=== PATIENT | female | born 1940 | race Caucasian/White ===

== ENCOUNTER 2018-12-21 19:04 | Observation (INO) ==
[2018-12-21] MEDS ORDERED: hydrALAZINE HCl Inj 20 MG/ML Vial IV.PUSH ONE (21:29)
--- NOTE | 2018-12-21 22:19 | CT ---
EXAM DATE: 12/21/2018 10:10 PM EST AGE/SEX: 78 years / Female INDICATIONS: Cephalgia. CLINICAL DATA: This is the patient's initial encounter. Patient reports that signs and symptoms have been present for 1 day and indicates a pain score of 6/10. MEDICAL/SURGICAL HISTORY: Dementia. Peripheral artery disease. Hypercholesterolemia. Hypertensio n. Femoral artery stenosis. None. RADIATION DOSE: 58.25 CTDI (mGy) COMPARISON: [facility], CT HEAD W/O CONTRAST, 06/09/2018. . TECHNIQUE: CT of the head without contrast. Using automated exposure control and adjustment of the mA and/or kV according to patient size, radiation dose was kept as low as reasonably achievable to ob tain optimal diagnostic quality images. DICOM format image data is available electronically for revi ew and comparison. FINDINGS: Cerebrum: Atrophy. The ventricles are normal for age. No evidence of midline shift, mass lesion, he morrhage or acute infarction. No extraaxial fluid collections are seen. Posterior Fossa: The cerebellum and brainstem are intact. The 4th ventricle is midline. The cerebe llopontine angle is unremarkable. Extracranial: The visualized portion of the orbits is intact. Increase in density of the mastoid air cells bilaterally is a new finding. No bony destruction. Skull: The calvaria is intact. No evidence of skull fracture. CONCLUSION: 1. Increase in density of the mastoid air cells bilaterally. This is a new finding from the prior ex am. Clinical evaluation for any signs of acute mastoiditis suggested. 2. No acute intracranial abnormality. . . Electronically signed by: Joe Linares MD Board Certified Radiologist 12/21/2018 10:17 PM EST
--- NOTE | 2018-12-21 22:21 | ED ---
HPI General Chief complaint: Hypertension Stated complaint: HTN x 1800 Time Seen by Provider: 12/21/18 21:15 Source: patient and family Limitations: no limitations History of Present Illness HPI narrative: Patient is a 78-year-old female, past medical history significant for COPD on oxygen at home, hypertension on lisinopril at home, elevated intraocular pressure though per family "not yet glaucoma" on drops several times a day, who presents with complaint of elevated blood pressure and L eye blurry vision. Family states that her blood pressure has not been well controlled since June when she was taken off previous medications and put on lisinopril only for her blood pressure. This evening she started to complain of blurry vision at 6 PM and they noted that her blood pressure was in the 200s. This is higher than it was earlier in the day it is abnormal for her. She had 35 mg of lisinopril today without much change and family states that has continued to go up. She has had headache as well. She does not have vision out of her right eye at baseline. No chest pain or shortness of breath no abdominal pain, nausea, vomiting. No numbness nor weakness. Onset (ago): hour(s) Severity: moderate Quality: aching Pain Consistency: constant Relieving factors: none Exacerbating factors: none Treatments prior to arrival: Reports other Related Data Home Medications Medication Instructions Recorded Confirmed apixaban 2.5 mg PO BID 08/04/18 08/04/18 aspirin 81 mg PO DAILY 08/04/18 12/21/18 bimatoprost [Lumigan] 1 drp OPHTHALMIC (EYE) QPM 08/04/18 12/21/18 brimonidine 1 drp OPHTHALMIC (EYE) TID 08/04/18 12/21/18 coenzyme Q10 [Co Q-10] 100 mg PO DAILY 08/04/18 12/21/18 dorzolamide 1 drp OPHTHALMIC (EYE) TID 08/04/18 12/21/18 escitalopram oxalate 20 mg PO DAILY 08/04/18 12/21/18 fexofenadine [Yanelis Allergy] 180 mg PO DAILY 08/04/18 12/21/18 fluticasone [Flonase Allergy 1 spray INTRANASAL DAILY 08/04/18 12/21/18 Relief] fluticasone furoate [Arnuity 1 inh INHALATION DAILY 08/04/18 12/21/18 Ellipta] ipratropium-albuterol 3 ml INHALATION Q6-8H PRN 08/04/18 12/21/18 isosorbide mononitrate 30 mg PO DAILY 08/04/18 12/21/18 levothyroxine 100 mcg PO DAILY 08/04/18 12/21/18 lisinopril 30 mg PO BID 08/04/18 12/21/18 omeprazole 20 mg PO DAILY 08/04/18 12/21/18 potassium chloride 30 meq PO QPM 08/04/18 12/21/18 propafenone 150 mg PO TID 08/04/18 12/21/18 rosuvastatin 10 mg PO DAILY 08/04/18 12/21/18 vit C,P-Mt-spgpp-lutein-zeaxan 1 tab PO QAM AND QHS 08/04/18 12/21/18 [PreserVision AREDS-2] Eliquis 2.5 mg PO BID 12/21/18 12/21/18 lisinopril 5 mg PO DAILY 12/21/18 12/21/18 Allergies Allergy/AdvReac Type Severity Reaction Status Date / Time No Known Allergies Allergy Verified 12/21/18 22:27 Review of Systems ROS: all other systems reviewed are negative [facility] Medical History Medical History Alcohol use disorder, severe, dependence (Acute) Dementia (Acute) Femoral artery stenosis (Acute) Hypercholesterolemia (Acute) Hypertension (Acute) PAD (peripheral artery disease) (Acute) Social History Social History Substance History: No History of Abuse Second Hand Smoke Exposure: No Smoking Status: Former smoker Tobacco Type: Cigarettes Packs Per Day: 1 Cigarettes Per Day: 20.0 How Often Do You Have a Drink Containing Alcohol: 4 or more times a week Recent Travel in [facility] within the Last 8 Weeks: No Recent Out of Country Travel within the Last 8 Weeks: No Exam Narrative Exam Narrative: GENERAL: Generally well-appearing elderly female in no acute respiratory distress on her home nasal cannula SKIN: Focused skin assessment warm/dry. HEAD: Atraumatic. Normocephalic. EYES: No scleral icterus. Left eye has blurry vision. The eye does appear slightly injected. Intraocular pressure of the left eye was less than 20. ENT: No nasal bleeding or discharge. Mucous membranes pink and moist. NECK: Trachea midline. No JVD. CARDIOVASCULAR: Regular rate and rhythm. No murmur appreciated. Intact and equal peripheral pulses. RESPIRATORY: No accessory muscle use. Clear to auscultation. Breath sounds equal bilaterally. GASTROINTESTINAL: Abdomen soft, non-tender, nondistended. Hepatic and splenic margins not palpable. MUSCULOSKELETAL: No obvious deformities. No clubbing. No cyanosis. No edema. NEUROLOGICAL: Awake and alert. No obvious cranial nerve deficits. Motor grossly within normal limits. Normal sensation. No ataxia. Normal speech. PSYCHIATRIC: Appropriate mood and affect; insight and judgment normal. Course Initial Documented Vital Signs Temperature 97.0 F L 12/21/18 19:20 Pulse Rate 62 12/21/18 19:20 Respiratory Rate 18 12/21/18 19:20 Blood Pressure 235/100 H 12/21/18 19:20 Pulse Oximetry 98 12/21/18 19:20 Last Documented Vital Signs Temperature 97.0 F L 12/21/18 19:20 Pulse Rate 64 12/21/18 23:05 Respiratory Rate 18 12/21/18 23:05 Blood Pressure 117/54 L 12/21/18 23:05 Pulse Oximetry 100 12/21/18 23:05 Medical Decision Making MDM Narrative Medical decision making narrative: Patient is a 78-year-old female who presents with complaint of acute blurry vision and headache at which time she knows her blood pressure was higher. She took her 30 mg of lisinopril and waited several hours prior to coming in but it continued to worsen. On arrival her blood pressure was elevated and continued to elevate to the 250s. Intraocular pressure was checked and was less than 20. She was given 10 mg of hydralazine x1 after which her blood pressure dropped down into the 120s. Her headache improved greatly and her blurry vision was almost gone at that time. CT of the head was unremarkable as were the labs. She has been admitted to Dr. Tidwell, hospitalist vibration engineer, for further evaluation and management. Medical Screen Exam Complete: Yes Emergency Medical Condition: Yes Differential Diagnosis Differential Diagnosis: Differential diagnosis includes but is not limited to acute angle-closure glaucoma, intracranial hemorrhage, uncontrolled hypertension. Medical Records Medical records reviewed: Yes I reviewed the patient's medical records. Lab Data Lab results reviewed: Yes I reviewed the patient's lab results. Result diagrams: 12/21/18 22:13 12/21/18 22:13 Lab Results 12/21/18 12/21/18 Range/Units 22:13 22:13 WBC 7.4 (4.0-11.0) th/mm3 RBC 3.54 L (4.00-5.30) mil/mm3 Hgb 11.4 L (11.6-15.3) gm/dL Hct 34.9 L (35.0-46.0) % MCV 98.6 (80.0-100.0) fL MCH 32.3 (27.0-34.0) pg MCHC 32.8 (32.0-36.0) % RDW 12.4 (11.6-17.2) % Plt Count 316 (150-450) th/mm3 MPV 7.3 (7.0-11.0) fL Sodium 139 (136-145) meq/L Potassium 4.0 (3.5-5.1) meq/L Chloride 104 (98-107) meq/L Carbon Dioxide 28.5 (21.0-32.0) meq/L Anion Gap 7 (5-15) meq/L BUN 16 (7-18) mg/dL Creatinine 0.81 (0.50-1.00) mg/dL Estimated GFR 68 L (>89) mL/min Random Glucose 96 (74-106) mg/dL Calcium 9.4 (8.5-10.1) mg/dL Imaging Data Attestation: I personally reviewed and interpreted this imaging study as follows : Radiologist's impression: Head CT 12/21/18 21:29 CONCLUSION: 1. Increase in density of the mastoid air cells bilaterally. This is a new finding from the prior exam. Clinical evaluation for any signs of acute mastoiditis suggested. 2. No acute intracranial abnormality. . . Discharge Plan Discharge Disposition Patient Disposition: ED Admit(ED Internal Use Only) Discharge Condition Condition: Stable Discharge Order Discharge Orders: ED Use Only Admit Order (Routine); Ordered 12/21/18 Ordered By: Felicita Marinelli Discharge Details Diagnosis: Hypertensive emergency, Change in vision Physicians Team ED Provider: Felicita Marinelli Primary Care Provider: Nell Wharton Rxs /Orders / Referrals /Forms Prescriptions: No Action Eliquis 2.5 mg PO BID RF: 0 propafenone 150 mg Tablet 150 mg PO TID RF: 0 ipratropium-albuterol 0.5 mg-3 mg(2.5 mg base)/3 mL Solution For Nebulization 3 ml INHALATION Q6-8H PRN (Reason: Bronchodilation) RF: 0 lisinopril 20 mg Tablet 30 mg PO BID RF: 0 isosorbide mononitrate 30 mg Tablet Extended Release 24 Hr 30 mg PO DAILY RF: 0 fexofenadine [Yanelis Allergy] 180 mg Tablet 180 mg PO DAILY RF: 0 aspirin 81 mg Tablet,Delayed Release (Dr/Ec) 81 mg PO DAILY RF: 0 omeprazole 20 mg Capsule,Delayed Release(Dr/Ec) 20 mg PO DAILY RF: 0 fluticasone [Flonase Allergy Relief] 50 mcg/actuation [place],Suspension 1 spray INTRANASAL DAILY RF: 0 dorzolamide 2 % Drops 1 drp OPHTHALMIC (EYE) TID RF: 0 escitalopram oxalate 20 mg Tablet 20 mg PO DAILY RF: 0 coenzyme Q10 [Co Q-10] 100 mg Capsule 100 mg PO DAILY RF: 0 rosuvastatin 10 mg Tablet 10 mg PO DAILY RF: 0 brimonidine 0.1 % Drops 1 drp OPHTHALMIC (EYE) TID RF: 0 levothyroxine 100 mcg Capsule 100 mcg PO DAILY RF: 0 bimatoprost [Lumigan] 0.01 % Drops 1 drp OPHTHALMIC (EYE) QPM RF: 0 apixaban 2.5 mg Tablet 2.5 mg PO BID RF: 0 vit C,A-Vh-qienx-lutein-zeaxan [PreserVision AREDS-2] 391-651-90-1 mg-unit-mg- mg Capsule 1 tab PO QAM AND QHS RF: 0 potassium chloride 20 mEq Tablet Extended Release 30 meq PO QPM RF: 0 fluticasone furoate [Arnuity Ellipta] 100 mcg/actuation Blister With Device 1 inh INHALATION DAILY RF: 0 Status ED Status: Admitted Patient
[2018-12-21 22:31] LABS: Hematocrit 34.9 % (35.0-46.0); Hemoglobin 11.4 gm/dL (11.6-15.3); Mean Corpuscular HGB Conc 32.8 % (32.0-36.0); Mean Corpuscular Hemoglobin 32.3 pg (27.0-34.0); Mean Corpuscular Volume 98.6 fL (80.0-100.0); Mean Platelet Volume 7.3 fL (7.0-11.0); Platelet Count 316 th/mm3 (150-450); Red Blood Count 3.54 mil/mm3 (4.00-5.30); Red Cell Distribution Width 12.4 % (11.6-17.2); White Blood Count 7.4 th/mm3 (4.0-11.0)
[2018-12-21 22:57] LABS: Calcium 9.4 mg/dL (8.5-10.1)
[2018-12-21 22:58] LABS: Carbon Dioxide 28.5 meq/L (21.0-32.0)
[2018-12-22] MEDS ORDERED: Bisacodyl 10 MG Supp RECTAL PRN (00:03)
[2018-12-22] MEDS ORDERED: Acetaminophen 325 MG Tablet PO PRN (00:03)
--- NOTE | 2018-12-22 07:50 | XR ---
EXAM DATE: 12/22/2018 7:43 AM EST AGE/SEX: 78 years / Female INDICATIONS: Short of breath. CLINICAL DATA: This is the patient's initial encounter. Patient reports that signs and symptoms have been present for 1 day and indicates a pain score of 0/10. MEDICAL/SURGICAL HISTORY: Chronic obstructive pulmonary disease. Hypercholesterolemia. Hypert ension. Dementia. Femoral artery stenosis. Peripheral artery disease. None. COMPARISON: [facility], CHEST 1V SINGLE AP, 08/04/2018. . FINDINGS: A single AP view of the chest demonstrates the lungs to be symmetrically aerated without evidence of mass, infiltrate or effusion. The cardiomediastinal contours are unremarkable. Osseous structures a re intact. CONCLUSION: The lungs are clear. Electronically signed by: Norm Pryor MD Board Certified Radiologist 12/22/2018 7:49 AM EST
[2018-12-22 10:25] VITALS: RESP 15
[2018-12-22 13:52] VITALS: TEMP 99.4; O2SAT 94
--- NOTE | 2018-12-22 14:32 | P.HPIM ---
History of Present Illness Primary Care Physician: Nell Wharton Chief Complaint: Visual loss in the left eye History of Present Illness: 78-year-old female who past medical history of hypertension, COPD on oxygen at home was brought to the ED for evaluation of elevated blood pressure associated with blurry vision in the left eye. Per daughter's account, patient was noted to have systolic BP in the 200s. There was no complaint of chest pain or shortness of breath. Patient is currently on lisinopril however per patient's daughter's account, it does not seem to be helping. Review of Systems Review of Systems: all other systems reviewed are negative [facility] Medical History Medical History Alcohol use disorder, severe, dependence (Acute) Dementia (Acute) Femoral artery stenosis (Acute) Hypercholesterolemia (Acute) Hypertension (Acute) PAD (peripheral artery disease) (Acute) Social History Social History Substance History: No History of Abuse Second Hand Smoke Exposure: No Smoking Status: Former smoker Tobacco Type: Cigarettes Packs Per Day: 1 Cigarettes Per Day: 20.0 How Often Do You Have a Drink Containing Alcohol: 4 or more times a week Recent Travel in [place] within the Last 8 Weeks: No Recent Out of Country Travel within the Last 8 Weeks: No Immunization History Tetanus Immunization: <5 Years Medications and Allergies Allergies Allergy/AdvReac Type Severity Reaction Status Date / Time No Known Allergies Allergy Verified 12/21/18 22:27 Home Medications Medication Instructions Recorded Confirmed Type aspirin 81 mg PO DAILY 08/04/18 12/22/18 History bimatoprost [Lumigan] 1 drp OPHTHALMIC (EYE) QPM 08/04/18 12/22/18 History brimonidine 1 drp LEFT EYE TID 08/04/18 12/22/18 History coenzyme Q10 [Co Q-10] 100 mg PO DAILY 08/04/18 12/22/18 History dorzolamide 1 drp LEFT EYE TID 08/04/18 12/22/18 History escitalopram oxalate 20 mg PO DAILY 08/04/18 12/22/18 History fexofenadine [Yanelis Allergy] 180 mg PO DAILY 08/04/18 12/22/18 History fluticasone [Flonase Allergy 1 spray INTRANASAL DAILY 08/04/18 12/22/18 History Relief] fluticasone furoate [Arnuity 1 inh INHALATION DAILY 08/04/18 12/22/18 History Ellipta] ipratropium-albuterol 3 ml INHALATION Q6-8H PRN 08/04/18 12/22/18 History isosorbide mononitrate 30 mg PO DAILY 08/04/18 12/22/18 History levothyroxine 100 mcg PO DAILY 08/04/18 12/22/18 History lisinopril 30 mg PO DAILY 08/04/18 12/22/18 History omeprazole 20 mg PO DAILY 08/04/18 12/22/18 History potassium chloride 30 meq PO QPM 08/04/18 12/22/18 History propafenone 150 mg PO BID 08/04/18 12/22/18 History rosuvastatin 10 mg PO DAILY 08/04/18 12/22/18 History vit C,T-En-roqqz-lutein-zeaxan 1 tab PO QAM AND QHS 08/04/18 12/22/18 History [PreserVision AREDS-2] Eliquis 2.5 mg PO BID 12/21/18 12/22/18 History albuterol sulfate [Ventolin HFA] 2 puff INHALATION Q4-6H PRN 12/21/18 12/22/18 History iron, carbonyl [Iron Chews] 65 mg PO DAILY 12/21/18 12/22/18 History lisinopril 5 mg PO DAILY 12/21/18 12/22/18 History nitroglycerin 0.4 mg SUBLINGUAL Q5-15M PRN 12/21/18 12/22/18 History umeclidinium-vilanterol [Anoro 1 puff INHALATION 12/21/18 History Ellipta] Mucinex 600 mg PO DAILY 12/22/18 12/22/18 History dextromethorphan-guaifenesin 1 tab PO DAILY 12/22/18 12/22/18 History [Mucinex DM] netarsudil [Rhopressa] 1 drop LEFT EYE DAILY 12/22/18 12/22/18 History Active Medications: Active Medications Acetaminophen (Tylenol) 650 mg PO Q4H PRN PRN Reason: Temp > 100.4 Al Hydroxide/Mg Hydroxide (Milk Of Magnesia Liq) 30 ml PO Q12H PRN PRN Reason: Mild Constipation Apixaban (Eliquis) 2.5 mg PO BID [facility] Last Admin: 12/22/18 09:00 Dose: 2.5 mg Bisacodyl (Dulcolax Supp) 10 mg RECTAL DAILY PRN PRN Reason: SEVERE CONSITIPATION Clonidine HCl (Catapres) 0.1 mg PO Q6H PRN PRN Reason: SBP>160,DBP>100 if HR>60 Lactulose (Lactulose Liq) 30 ml PO DAILY PRN PRN Reason: SEVERE CONSITIPATION Ondansetron HCl (Zofran Inj) 4 mg IV.PUSH Q6H PRN PRN Reason: NAUSEA OR VOMITING Sennosides (Senokot) 17.2 mg PO Q12H PRN PRN Reason: Moderate Constipation Sodium Chloride (Ns Flush) 2 ml IV.FLUSH BID [facility] Last Admin: 12/22/18 09:00 Dose: 2 ml Sodium Chloride (Ns Flush) 2 ml IV.FLUSH PRN PRN PRN Reason: FLUSH AFTER USING IV ACCESS Physical Exam Vital signs: Vital Signs 12/21/18 19:20 12/21/18 21:15 12/21/18 22:18 Temperature 97.0 F L Pulse Rate 62 60 58 L Respiratory Rate 18 18 18 Blood Pressure 235/100 H 244/106 H 207/93 H Pulse Oximetry 98 100 99 12/21/18 22:47 12/21/18 23:05 12/21/18 23:46 Temperature Pulse Rate 64 63 Respiratory Rate 18 18 18 Blood Pressure 138/62 117/54 L 122/55 L Pulse Oximetry 100 100 12/22/18 00:52 12/22/18 04:00 12/22/18 04:03 Temperature 97.8 F Pulse Rate 60 62 62 Respiratory Rate 18 20 Blood Pressure 115/54 L 115/49 L Pulse Oximetry 99 100 12/22/18 08:00 12/22/18 12:00 Temperature 98.8 F 99.4 F Pulse Rate 67 69 Respiratory Rate 15 15 Blood Pressure 127/60 149/67 H Pulse Oximetry 100 94 L Intake & Output 12/21/18 12/22/18 12/22/18 18:59 06:59 18:59 Weight 41.5 kg Other: Date of Last Bowel Movement 12/21/18 Weight On Admission 43.5 kg Narrative: GENERAL: NAD SKIN: Warm and dry. HEAD: Atraumatic. Normocephalic. EYES: Pupils equal and round. No scleral icterus. No injection or drainage. ENT: No nasal bleeding or discharge. Mucous membranes pink and moist. NECK: Trachea midline. No JVD. CARDIOVASCULAR: Regular rate and rhythm. RESPIRATORY: No accessory muscle use. Clear to auscultation. Breath sounds equal bilaterally. GASTROINTESTINAL: Abdomen soft, non-tender, nondistended. Hepatic and splenic margins not palpable. MUSCULOSKELETAL: Extremities without clubbing, cyanosis, or edema. No obvious deformities. NEUROLOGICAL: Awake and alert. No obvious cranial nerve deficits. Motor grossly within normal limits. Five out of 5 muscle strength in the arms and legs. Normal speech. PSYCHIATRIC: Appropriate mood and affect; insight and judgment normal. Results Labs CBC & Chem 7: 12/21/18 22:13 12/21/18 22:[address] 12/21/18 21:29 CONCLUSION: 1. Increase in density of the mastoid air cells bilaterally. This is a new finding from the prior exam. Clinical evaluation for any signs of acute mastoiditis suggested. 2. No acute intracranial abnormality. . . Chest X-Ray 12/22/18 00:00 CONCLUSION: The lungs are clear. Caprini VTE Risk Assessment Caprini VTE Risk Assessment: Moderate/High Risk (score >= 2) Caprini Risk Assessment Model: Point Value = 1 Point Value = 2 Point Value = 3 Point Value = 5 Age 41-60 Minor surgery BMI > 25 kg/m2 Swollen legs Varicose veins or History of unexplained or recurrent spontaneous Oral contraceptives or hormone replacement Sepsis (< 1 month) Serious lung disease, including pneumonia (< 1 month) Abnormal pulmonary function Acute myocardial infarction Congestive heart failure (< 1 month) History of inflammatory bowel disease Medical patient at bed rest Age 61-74 Arthroscopic surgery Major open surgery (> 45 min) Laparoscopic surgery (> 45 min) Malignancy Confined to bed (> 72 hours) Immobilizing plaster cast Central venous access Age >= 75 History of VTE Family history of VTE Factor V Leiden Prothrombin [id number] Lupus anticoagulant Anticardiolipin antibodies Elevated serum homocysteine Heparin-induced thrombocytopenia Other congenital or acquired thrombophilia Stroke (< 1 month) Elective arthroplasty Hip, pelvis, or leg fracture Acute spinal cord injury (< 1 month) Prophylaxis Regimen: Total Risk Factor Score Risk Level Prophylaxis Regimen 0-1 Low Early ambulation 2 Moderate Order ONE of the following: *Sequential Compression Device (SCD) *Heparin 5000 units SQ BID 3-4 Higher Order ONE of the following medications: *Heparin 5000 units SQ TID *Enoxaparin/Lovenox 40 mg SQ daily (WT < 150 kg, CrCl > 30 mL/min) *Enoxaparin/Lovenox 30 mg SQ daily (WT < 150 kg, CrCl > 10-29 mL/min) *Enoxaparin/Lovenox 30 mg SQ BID (WT < 150 kg, CrCl > 30 mL/min) AND/OR *Sequential Compression Device (SCD) 5 or more Highest Order ONE of the following medications: *Heparin 5000 units SQ TID (Preferred with Epidurals) *Enoxaparin/Lovenox 40 mg SQ daily (WT < 150 kg, CrCl > 30 mL/min) *Enoxaparin/Lovenox 30 mg SQ daily (WT < 150 kg, CrCl > 10-29 mL/min) *Enoxaparin/Lovenox 30 mg SQ BID (WT < 150 kg, CrCl > 30 mL/min) AND *Sequential Compression Device (SCD) Assessment and Plan Plan 78-year-old female with Hypertensive emergency Chest x-ray noted and reviewed by me without any acute finding Head CT noted and reviewed by me Resolved since admission Resume outpatient medication except lisinopril Hypertension Will hold lisinopril, and continue with hydralazine Resume other oral antihypertensive medications Cough Hold lisinopril Start Tessalon Perles Other chronic medical conditions Resume outpatient medications Patient's condition improved since admission, therefore she will be discharged home with follow-up with her PCP and information systems architect Discharge patient to home Condition on discharge: Improved Regular Diet as tolerated Ad Le activity Rx written: See EMR Follow-up with primary care physician H&P: Quality VTE Deep Vein Thrombosis/Pulmonary Embolism Present on Admission: No
[2018-12-22 15:16] VITALS: BP 144/79; PULSE 61
== END 2018-12-22 16:09 | disposition home or self-care (01) ==
LOC: PHED 19:04 → PHEDA 23:19 → INTOOBSV 23:19 → PHEDA 12-22 00:55 → PH3 12-22 01:26
PROVIDERS: ADMIT Hospitalist; ATTEND Hospitalist
CPT/HCPCS: 70450; 71010; 71045; 80048; 85027; 90774; 96374; 99285; C8952; G0378; J0360